=== PATIENT | female | born 1970 | race Caucasian/White ===

== ENCOUNTER → 2016-05-14 | Outpatient (CLI) | payer OTHER ==
--- NOTE | 2016-05-14 13:25 | MA ---
Diagnostic Digital Mammogram With iCAD Analysis Clinical Indications: Evaluate palpable area in the anterior right breast. Her mother was diagnosed w ith breast cancer in her 50s and her paternal grandmother was also diagnosed with breast cancer. Technique: Standard cephalocaudal projections are obtained. Digital breast tomosynthesis was performe d in the MLO projection with reconstruction at 1.0 mm slice thickness and composite MLO views reconst ructed. A skin marker is placed on the palpable area in the mid outer right breast. True lateral view of the right breast is also performed. This examination is processed by the [employer] computer-aided dete ction system. Comparison: October 2014, October 2012, April 2011. Breast Density: Type C: Heterogeneously dense. Findings: CAD was reviewed. Heterogeneous glandular pattern is noted with no distinct mammographic co rrelate for the palpable abnormality. No masses, suspicious calcifications, or secondary signs of mal ignancy are seen. There has been no significant change in the appearance of either breast. Impression: Palpable area in the right breast requires further evaluation, BI-RADS 0. Recommendation: Targeted right breast ultrasound which will be subsequently performed today. [facility] will send a result letter to the patient.
--- NOTE | 2016-05-14 13:34 | US ---
Right Breast Ultrasound History: Evaluate palpable abnormality in the anterior right breast at the 9 o'clock position. Technique: Longitudinal and transverse images were obtained utilizing a 15 MHz transducer. Color Dop pler evaluation is employed for assessment of vascularity. Examination is interpreted in conjunction with diagnostic mammography performed earlier today. Findings: The palpable abnormality at the 9 o'clock position of the right breast is easily identified on physical examination. Sonographic interrogation demonstrates a solid nodule measuring 1.9 x 1.2 c m. Immediately adjacent to the larger nodule is a 3 x 4 mm solid nodule approximately 1 cm away from the larger nodule. Impression: The palpable nodule is solid and therefore suspicious, BI-RADS 4. Recommendation: Ultrasound-guided large-core biopsy. The adjacent smaller lesion could be biopsied at the same time as biopsy of the larger lesion.. Findings and biopsy recommendations were reviewed with the patient in detail. Additionally, her [facility] provider's office was contacted and they will fax a procedure request to our department. Our de partment will contact the patient to schedule the ultrasound-guided biopsy . [facility] will send a result letter to the patient.
== END ==
LOC: FIMAGING 11:39
PROVIDERS: ATTEND Nurse Practitioner Adult Health
DX: N63 Unspecified lump in breast (principal); Z80.3 Family history of malignant neoplasm of breast
CPT/HCPCS: G0204; G0279

== ENCOUNTER → 2016-05-21 | Outpatient (CLI) | payer OTHER ==
[~2016-05-21] MED LIST: THROMBIN (RECOMBINANT) 5,000 UNIT VIAL TP ONE
--- NOTE | 2016-05-21 09:47 | MA ---
Diagnostic Digital Mammogram Right Breast Reason for examination: Follow up sonographically guided right breast biopsy. Technique: Craniocaudal and true lateral views were obtained. Findings: The Suros marker is deployed at the biopsy site in the anterior breast at the 9 o'clock pos ition. Impression: The Suros marker is deployed at the biopsy site. We will await pathologic results.
--- NOTE | 2016-05-21 16:49 | US ---
Vacuum-Assisted Ultrasound-Guided Core Biopsy of the Right Breast Reason for examination: Evaluate suspicious solid nodule in the right breast at the 9 o'clock positio n 1 cm from the nipple.. Crosscutting Measure #226: Current tobacco user: No. Technique: Informed consent was obtained. On prebiopsy sonographic evaluation the smaller lesion seen approximately 1 cm from the larger lesion is demonstrated on color Doppler to be extremely vascular and therefore not considered a good candidate for percutaneous biopsy. This may actually be a vascula r structure. Following sterile preparation and local anesthesia and utilizing vacuum assistance and s onographic guidance, a 9-gauge Suros needle was advanced into the larger lesion. Multiple large core biopsies were obtained. The biopsy was performed with continuous real time sonographic monitoring. A Suros marker was deployed to daylin the biopsy site. The needle was removed and hemostasis was obtained with manual compression. The patient tolerated the procedure well and no immediate complications occ urred. A post biopsy mammogram will be obtained to evaluate marker deployment. Discharge instruction s were given by the Radiology nurse. Impression: Successful sonographically guided large core biopsy. Follow up will depend to a certain e xtent on pathology results. Material was sent to pathology. We will await results.
[2016-05-31 14:43] LABS: ACCESSION # HR17-6366 (()); INTERPRETATION See Comments (())
== END ==
LOC: FIMAGING 07:56
PROVIDERS: ATTEND Radiology Diagnostic Radiology
PROC: 0HBT3ZX Excision of Right Breast, Percutaneous Approach, Diagnostic (ICD-10-PCS; principal; 2016-05-21)
DX: C50.911 Malignant neoplasm of unspecified site of right female breast (principal)
CPT/HCPCS: G0206

== ENCOUNTER → 2016-06-15 | Outpatient (CLI) | payer OTHER ==
[~2016-06-15] MED LIST changes: +GADOBUTROL 10 ML VIAL IVP ONE; -THROMBIN (RECOMBINANT) 5,000 UNIT VIAL TP ONE
== END ==
LOC: FIMAGING 10:02
PROVIDERS: ATTEND Surgery
DX: C50.911 Malignant neoplasm of unspecified site of right female breast (principal); R59.9 Enlarged lymph nodes, unspecified
CPT/HCPCS: 0159T; A9585; C8908

== ENCOUNTER 2016-07-16 12:05 | Day surgery (SDC) | payer OTHER ==
[~2016-07-16 12:05] MED LIST changes: -GADOBUTROL 10 ML VIAL IVP ONE; +ceFAZolin 2 GM/DEXTROSE 100 ML IV ONE
[2016-07-16] MEDS ORDERED: LIDOCAINE 1% 2 ML INJ ONE (12:15)
[2016-07-16] MEDS ORDERED: CEFAZOLIN 2 GM/DEXTROSE/100 ML BAG IV ONE (12:22)
[2016-07-16] MEDS ORDERED: LR 1,000 ML IV ONE (12:44)
[2016-07-16] MEDS ORDERED: LIDOCAINE 1% 30 ML SDV ONE (12:56)
[2016-07-16] MEDS ORDERED: BUPIVACAINE 0.25% 30 ML SDV ONE (12:56)
[2016-07-16] MEDS ORDERED: SODIUM BICARBONATE 10 MEQ/10 ML SYR IVP ONE (12:56)
[2016-07-16] MEDS ORDERED: HEPARIN 10,000 UNIT/10 ML MDV ONE (12:57)
[2016-07-16] MEDS ORDERED: MIDAZOLAM 2 MG/2 ML VIAL ONE (13:55)
[2016-07-16] MEDS ORDERED: fentaNYL 100 MCG/2 ML INJ ONE (14:23)
[2016-07-16] MEDS ORDERED: PROPOFOL/EMULSION 500 MG/50 ML BOTTLE IV ONE (14:23)
[2016-07-16] MEDS ORDERED: ONDANSETRON 4 MG/2 ML VIAL ONE (14:24)
[2016-07-16] MEDS ORDERED: LIDOCAINE 2% 100 MG/5 ML SYR ONE (14:24)
[2016-07-16] MEDS ORDERED: DEXAMETHASONE 4 MG/ML VIAL ONE ×2 (14:24)
[2016-07-16] MEDS ORDERED: LIDOCAINE 2% JELLY 5 ML TUBE ONE (14:24)
[2016-07-16] MEDS ORDERED: PROPOFOL 200 MG/20 ML VIAL ONE (15:02)
--- NOTE | 2016-07-16 16:03 | GOP ---
[f rep st] OPERATIVE REPORT DATE OF OPERATION: 07/16/2016 SURGEON: Lenard Rojas MD, FACS ANESTHESIA: Monitored anesthesia care. ANESTHESIOLOGIST: Ashutosh Boone MD. PREOPERATIVE DIAGNOSIS: 1. Right breast carcinoma. 2. Need for venous access for neoadjuvant chemotherapy. POSTOPERATIVE DIAGNOSIS: 1. Right breast carcinoma. 2. Need for venous access for neoadjuvant chemotherapy. PROCEDURE PERFORMED: Placement of a left subclavian venous port. FINDINGS: Uncomplicated port placement, post procedural chest x-ray, pending. ESTIMATED BLOOD LOSS: 10 mL. DESCRIPTION OF PROCEDURE: After informed consent was obtained, the patient was brought to the operating room and placed under deep sedation. The left chest wall and neck were prepped and draped in usual fashion. Before proceeding, a time-out and identification of the patient was performed. 0.25% Marcaine was used to infiltrate all incision sites. The left subclavian vein was punctured on the first pass and a flexible J-wire was introduced and advanced without resistance. Position was confirmed by fluoroscopy. A reservoir insertion site was selected on the chest wall and this was infiltrated with 0.25% Marcaine, incised transversely and dissection carried out down to the fascia with cautery dissection. An 8-Botswanan catheter was tunneled from the reservoir site to the venipuncture site where a small frank had been made in the skin with a 15 scalpel blade. A dilator and peel-away catheter were passed over the wire. The wire and dilator were removed. The 8- [place] polyurethane catheter was passed through the split catheter which was removed leaving the venous port catheter intravenous. The catheter was aspirated with good venous return and flushed with dilute heparin solution (100 units/mL). The tip of the catheter was adjusted by withdrawal under fluoroscopy such that the tip of the catheter lay at the superior vena cava right atrial junction. The external portion of the catheter was cut to length and attached to a reservoir. This was secured to the chest wall with interrupted 3-0 Prolene sutures. The reservoir was accessed with a noncoring needle and again aspirated and flushed with dilute heparin solution followed by 2.5 cc of 1000 unit/cc heparin. The subcutaneous tissues were approximated with 3-0 Monocryl suture. The skin was closed with 4-0 Monocryl suture in a subcuticular fashion both for the reservoir site as well as the vena puncture site. Mastisol and Steri-Strips were applied. Sterile dressings were placed. The patient was returned to the recovery room in satisfactory condition. Needle , sponge, and instrument counts were correct. COMPLICATIONS: None. Copy requested to: Patient chart /[id number]/MODL MTDD
== END 2016-07-16 17:00 | disposition home or self-care (01) ==
LOC: FSGY 12:05 → EEVIPCON 13:15 → FSGY 17:00
PROVIDERS: ATTEND Surgery
PROC: 02HV33Z Insertion of Infusion Device into Superior Vena Cava, Percutaneous Approach (ICD-10-PCS; principal; 2016-07-16 13:15)
PROC: 0JH60XZ Insertion of Tunneled Vascular Access Device into Chest Subcutaneous Tissue and Fascia, Open Approach (ICD-10-PCS; principal; 2016-07-16 13:15)
DX: C50.411 Malignant neoplasm of upper-outer quadrant of right female breast (principal)
CPT/HCPCS: C1788; J0690; J1100; J1644; J2001; J2250; J2405; J2704; J3010

== ENCOUNTER → 2016-09-10 | Outpatient (CLI) | payer OTHER | LOC: FIMAGING 12:13 | PROVIDERS: ATTEND Nurse Practitioner | DX: Z08 Encounter for follow-up examination after completed treatment for malignant neoplasm (principal); Z85.3 Personal history of malignant neoplasm of breast ==

== ENCOUNTER → 2016-11-25 | Outpatient (CLI) | payer OTHER ==
--- NOTE | 2016-11-25 11:46 | CPEKG ---
Heart Rate: 59 RR Interval: 1017 P-R Interval: 144 QRSD Interval: 76 QT Interval: 412 QTC Interval: 409 P Hitchcock: 76 QRS Hitchcock: 76 T Wave Hitchcock: 75 EKG Severity - ABNORMAL ECG - EKG Impression: SINUS RHYTHM EKG Impression: NONSPECIFIC T ABNORMALITIES, ANT-LAT LEADS Electronically Signed By: Alejandro Rothman 26-Nov-2016 07:24:03
== END ==
LOC: FCP 11:29
DX: Z01.818 Encounter for other preprocedural examination (principal); C50.919 Malignant neoplasm of unspecified site of unspecified female breast

== ENCOUNTER → 2017-02-10 | Outpatient (CLI) | payer OTHER | LOC: CIMAGING 08:09 | PROVIDERS: ATTEND Internal Medicine | DX: M79.601 Pain in right arm (principal) | CPT/HCPCS: 93971-PO ==

== ENCOUNTER 2017-04-30 22:15 | Emergency (ER) | payer OTHER ==
[2017-04-30] MEDS ORDERED: chlordiazePOXIDE 25 MG CAP PO ONE (22:42)
[2017-04-30] MEDS ORDERED: NS 1,000 ML IV ONE ×2 (22:42→23:23)
[2017-04-30 22:59] LABS: PLATELET COUNT 184 10^3/uL (150-400)
[2017-04-30] MEDS ORDERED: LORazepam 2 MG/ML INJ IVP ONE (23:01)
--- NOTE | 2017-04-30 23:30 | EDPHY ---
H & P Stated Complaint: dehydration HPI/ROS: Chief complaint: Dehydration, alcohol abuse History of present illness: This is a 46-year-old female who presents to the emergency department reporting she feels dehydrated. She has a history of alcohol abuse. Her last drink was a few hours ago. She is currently seeking inpatient treatment for her alcoholism. She states she went to an inpatient treatment center [facility] for evaluation. They asked her to go to the emergency room for rehydration. She denies other associated signs or symptoms at this time. Review of systems: A 10 point review of systems was obtained and other than described above was negative - Personal History LMP (Females 10-55): Unknown Current Tetanus Diphtheria and Acellular Pertussis (TDAP): Yes - Medical/Surgical History Hx Asthma: No Hx Chronic Respiratory Disease: No Hx Diabetes: No Hx Cardiac Disease: No Hx Renal Disease: No Hx Cirrhosis: No Hx Alcoholism: No Hx HIV/AIDS: No Hx Splenectomy or Spleen Trauma: No Other PMH: pmh:"BAD LIVER", DEPRESSION, breast CA 2016. PSH:NONE - Social History Smoking Status: Never smoked - Physical Exam Exam: General Appearance: Alert, nontoxic. Eyes: Pupils equal and round no pallor or injection. ENT, Mouth: Mucous membranes moist. Respiratory: There are no retractions, lungs are clear to auscultation. Cardiovascular: Regular rate and rhythm. Gastrointestinal: Abdomen is soft and non tender, no masses, bowel sounds normal. Neurological: Alert and oriented x4. Strength and sensation intact and symmetrical. Skin: Warm and dry, no rashes. Musculoskeletal: Neck is supple non tender. Extremities are symmetrical, full range of motion. Psychiatric: Patient is oriented X 3, there is no agitation. Constitutional: Initial Vital Signs Temperature (C) 37 C 04/30/17 22:19 Heart Rate 102 H 04/30/17 22:19 Respiratory Rate 20 04/30/17 22:19 Blood Pressure 145/116 H 04/30/17 22:19 O2 Sat (%) 94 04/30/17 22:19 O2 Delivery Mode Room Air Allergies/Adverse Reactions: No Known Allergies Allergy (Verified 04/30/17 22:18) Home Medications: Medication Instructions Recorded buPROPion SR [Wellbutrin 100mg SR 04/15/15 (*)] Gabapentin 800 mg 07/14/16 Medical Decision Making ED Course/Re-evaluation: Patient discussed with my secondary supervising physician Dr. Lenard Olivia. Patient presents to the emergency department reporting a history of alcohol abuse, states she is dehydrated and needs to be rehydrated so she can seek inpatient treatment for her alcoholism. She does appear to be in mild withdrawal on presentation. Baseline blood studies are obtained, noteworthy for leukopenia and mild transaminitis. She has had this problem previously. She is IV hydrated and treated with oral Librium and IV Ativan. On re- evaluation she is feeling much better. She would like to be discharged. She is going to stay at a hotel this evening and seek inpatient treatment tomorrow. She was offered to be sent to the [facility], she declined. Home care is discussed. Return precautions are given. The patient voiced understanding and agreement with plan. Differential Diagnosis: Included but not limited to alcohol intoxication, polysubstance abuse, alcohol withdrawal - Data Points Laboratory Results: Laboratory Results 04/30/17 22:49 04/30/17 22:49 04/30/17 04/30/17 04/30/17 22:49 22:49 22:49 WBC 2.06 10^3/uL L 10^3/uL (3.80-9.50) RBC 4.22 10^6/uL 10^6/uL (4.18-5.33) Hgb 14.1 g/dL g/dL (12.6-16.3) Hct 38.8 % % (38.0-47.0) MCV 91.9 fL fL (81.5-99.8) MCH 33.4 pg pg (27.9-34.1) MCHC 36.3 g/dL g/dL (32.4-36.7) RDW 14.8 % % (11.5-15.2) Plt Count 184 10^3/uL 10^3/uL (150-400) MPV 8.4 fL L fL (8.7-11.7) Neut % (Auto) 51.9 % % (39.3-74.2) Lymph % (Auto) 29.1 % % (15.0-45.0) Page % (Auto) 13.6 % H % (4.5-13.0) Eos % (Auto) 3.4 % % (0.6-7.6) Baso % (Auto) 1.5 % % (0.3-1.7) Nucleat RBC Rel Count 0.0 % % (0.0-0.2) Absolute Neuts (auto) 1.07 10^3/uL L 10^3/uL (1.70-6.50) Absolute Lymphs (auto) 0.60 10^3/uL L 10^3/uL (1.00-3.00) Absolute Monos (auto) 0.28 10^3/uL L 10^3/uL (0.30-0.80) Absolute Eos (auto) 0.07 10^3/uL 10^3/uL (0.03-0.40) Absolute Basos (auto) 0.03 10^3/uL 10^3/uL (0.02-0.10) Absolute Nucleated RBC 0.00 10^3/uL 10^3/uL (0-0.01) Immature Gran % 0.5 % % (0.0-1.1) Immature Gran # 0.01 10^3/uL 10^3/uL (0.00-0.10) Sodium 139 mEq/L mEq/L (135-145) Potassium 4.5 mEq/L mEq/L (3.5-5.2) Chloride 97 mEq/L mEq/L (97-110) Carbon Dioxide 22 mEq/l mEq/l (22-31) Anion Gap 20 mEq/L H mEq/L (8-16) BUN 9 mg/dL mg/dL (7-23) Creatinine 0.7 mg/dL mg/dL (0.6-1.0) Estimated GFR > 60 Glucose 102 mg/dL H mg/dL (70-100) Calcium 9.6 mg/dL mg/dL (8.5-10.4) Total Bilirubin 0.6 mg/dL mg/dL (0.1-1.4) Conjugated Bilirubin 0.3 mg/dL mg/dL (0.0-0.5) Unconjugated Bilirubin 0.3 mg/dL mg/dL (0.0-1.1) AST 291 IU/L H IU/L (14-46) ALT 203 IU/L H IU/L (9-52) Alkaline Phosphatase 119 IU/L IU/L (38-126) Total Protein 8.3 g/dL H g/dL (6.3-8.2) Albumin 4.9 g/dL g/dL (3.5-5.0) Beta HCG, Qual NEGATIVE Medications Given: Discontinued Medications Chlordiazepoxide HCl (Librium) 25 mg PO EDNOW ONE Stop: 04/30/17 22:43 Last Admin: 04/30/17 22:51 Dose: 25 mg Chlordiazepoxide HCl (Librium) 25 mg PO EDNOW ONE Stop: 05/01/17 00:24 Last Admin: 05/01/17 00:30 Dose: 25 mg Sodium Chloride (Ns) 1,000 mls @ 0 mls/hr IV EDNOW ONE; Wide Open PRN Reason: Protocol Stop: 04/30/17 22:43 Last Admin: 04/30/17 22:51 Dose: 1,000 mls Sodium Chloride (Ns) 1,000 mls @ 0 mls/hr IV ONCE ONE PRN Reason: Wide Open Stop: 04/30/17 23:24 Last Admin: 04/30/17 23:52 Dose: 1,000 mls Lorazepam (Ativan Injection) 2 mg IVP EDNOW ONE Stop: 04/30/17 23:02 Last Admin: 04/30/17 23:04 Dose: 2 mg Departure - Departure Disposition: Home, Routine, Self-Care Clinical Impression: Dehydration, Alcohol abuse, Transaminitis Leukopenia Qualifiers: Leukopenia type: unspecified Qualified Code(s): D72.819 - Decreased white blood cell count, unspecified Condition: Good Instructions: Dehydration (ED), Abuse of Alcohol (ED) Additional Instructions: Follow-up with your primary care doctor this week for recheck of your laboratory findings Drink plenty of fluids to stay hydrated If symptoms worsen or new symptoms develop return to the emergency room for recheck Referrals: Ada Olea MD [Primary Care Provider] - As per Instructions
[2017-04-30 23:54] VITALS: PULSE 90
[2017-05-01 00:17] VITALS: BP 117/85; RESP 16; O2SAT 96
[2017-05-01] MEDS ORDERED: chlordiazePOXIDE 25 MG CAP PO ONE (00:23)
[2017-05-01 00:40] VITALS: TEMP 97.3
== END 2017-05-01 00:38 | disposition home or self-care (01) ==
DX: E86.0 Dehydration (principal); F10.10 Alcohol abuse, uncomplicated; R74.0 Nonspecific elevation of levels of transaminase and lactic acid dehydrogenase [LDH]; D72.819 Decreased white blood cell count, unspecified; E86.9 Volume depletion, unspecified; Z85.3 Personal history of malignant neoplasm of breast
CPT/HCPCS: 96374; J2060

== ENCOUNTER 2017-09-20 16:26 | Emergency (ER) | payer OTHER ==
[2017-09-20] MEDS ORDERED: LORazepam 2 MG/ML INJ IVP ONE (16:31)
[2017-09-20] MEDS ORDERED: NS 1,000 ML IV ONE (16:31)
--- NOTE | 2017-09-20 16:34 | EDPHY ---
H & P Time Seen by Provider: 09/20/17 16:35 HPI/ROS: CHIEF COMPLAINT: Seizure HISTORY OF PRESENT ILLNESS: The patient is a 47-year-old alcoholic female who is trying to stop drinking. She has not had a drink for 24 hr. She was with her today at the grocery store when she had a generalized tonic-clonic seizure lasting 90 sec. She was postictal when EMS arrived. She did hit her head on the ground and has a hematoma to the back of her head and a mild headache. She vomited once. She was incontinent and did not bite her tongue. She also takes gabapentin and Wellbutrin for history of anxiety and depression. She states that she has not missed any doses of these are taken extra. Also has a history of breast cancer in her bowel disease. Was given Zofran by EMS and IV fluids. REVIEW OF SYSTEMS: Constitutional: denies: chills, fever, recent illness, recent injury EENTM: denies: blurred vision, double vision, nose congestion Respiratory: denies: cough, shortness of breath Cardiac: denies: chest pain, irregular heart rate, lightheadedness, palpitations Gastrointestinal/Abdominal: denies: abdominal pain, diarrhea, nausea, vomiting, blood streaked stools Genitourinary: denies: dysuria, frequency, hematuria, pain Musculoskeletal: denies: joint pain, muscle pain Skin: denies: lesions, rash, jaundice, bruising Neurological: See HPI See HPI denies: numbness, paresthesia, tingling, dizziness, weakness Hematologic/Lymphatic: denies: blood clots, easy bleeding, easy bruising Immunologic/allergic: denies: HIV/AIDS, transplant EXAM: GENERAL: Well-appearing, well-nourished and in no acute distress. HEAD: Atraumatic, normocephalic. EYES: Pupils equal round and reactive to light, extraocular movements intact, sclera anicteric, conjunctiva are normal. ENT: TMs normal, nares patent, oropharynx clear without exudates. Moist mucous membranes. NECK: Normal range of motion, supple without lymphadenopathy or JVD. LUNGS: Breath sounds clear to auscultation bilaterally and equal. No wheezes rales or rhonchi. HEART: Regular rate and rhythm without murmurs, rubs or gallops. ABDOMEN: Soft, nontender, normoactive bowel sounds. No guarding, no rebound. No masses appreciated. BACK: No CVA tenderness, no spinal tenderness, step-offs or deformities EXTREMITIES: Normal range of motion, no pitting or edema. No clubbing or cyanosis. NEUROLOGICAL: Slightly confused, mild tremor, Cranial nerves II through XII grossly intact. Normal speech, normal gait. 5/5 strength, normal movement in all extremities, normal sensation PSYCH: Normal mood, normal affect. SKIN: Warm, dry, normal turgor, no visible rashes or lesions. Source: Patient Exam Limitations: No limitations - Medical/Surgical History Hx Asthma: No Hx Chronic Respiratory Disease: No Hx Diabetes: No Hx Cardiac Disease: No Hx Renal Disease: No Hx Cirrhosis: No Hx Alcoholism: No Hx HIV/AIDS: No Hx Splenectomy or Spleen Trauma: No Other PMH: pmh:"BAD LIVER", DEPRESSION, breast CA 2016. PSH:NONE - Social History Smoking Status: Never smoked Alcohol Use: Heavy Constitutional: Initial Vital Signs Temperature (C) 36.7 C 09/20/17 16:37 Heart Rate 80 09/20/17 16:37 Respiratory Rate 14 09/20/17 16:37 Blood Pressure 138/100 H 09/20/17 16:37 O2 Sat (%) 96 09/20/17 16:37 O2 Delivery Mode Room Air Allergies/Adverse Reactions: No Known Allergies Allergy (Verified 04/30/17 22:18) Home Medications: Medication Instructions Recorded buPROPion SR [Wellbutrin 100mg SR 04/15/15 (*)] Gabapentin 800 mg 07/14/16 Medical Decision Making - Diagnostics Imaging Results: Imaging Impressions Head CT 09/20/17 16:31 Impression: 1. Mild cerebral atrophy. 2. Left parietal scalp hematoma measuring 5 x 2 cm without skull fracture. 3. No epidural or subdural hematoma. Findings and recommendations discussed with Emergency Department physician, RYANN CHADWICK at 17:24 hour, 09/20/2017. Final report concurs with initial preliminary interpretation. Imaging: Discussed imaging studies w/ order desk caller Radiologist ED Course/Re-evaluation: We discussed the CT and lab results. The patient is feeling much better. I will give her Librium to take home with her . She does not wish to go to the recovery Center. She states that she has been through this before and has much support at home. Differential Diagnosis: Partial list of the Differential diagnosis considered include but were not limited to; hematoma, alcohol withdrawal, seizure and although unlikely based on the history and physical exam, I also considered fracture, intracranial hemorrhage. I discussed these differential diagnoses and the plan with the patient as well as the usual and expected course. The patient understands that the diagnosis is provisional and that in medicine we are not always correct and that further workup is often warranted. Usual and customary warnings were given. All of the patient's questions were answered. The patient was instructed to return to the emergency department should the symptoms at all worsen or return, otherwise to followup with the physician as we discussed. - Data Points Laboratory Results: Laboratory Results 09/20/17 16:57 09/20/17 16:57 09/20/17 09/20/17 09/20/17 16:57 16:57 16:57 WBC RBC Hgb Hct MCV MCH MCHC RDW Plt Count MPV Neut % (Auto) Lymph % (Auto) [place] % (Auto) Eos % (Auto) Baso % (Auto) Nucleat RBC Rel Count Absolute Neuts (auto) Absolute Lymphs (auto) Absolute Monos (auto) Absolute Eos (auto) Absolute Basos (auto) Absolute Nucleated RBC Immature Gran % Immature Gran # PT 14.3 SEC SEC (12.0-15.0) INR 1.09 (0.83-1.16) Sodium 131 mEq/L L mEq/L (135-145) Potassium 3.3 mEq/L mEq/L (3.3-5.0) Chloride 90 mEq/L L mEq/L (97-110) Carbon Dioxide 15 mEq/l L mEq/l (22-31) Anion Gap 26 mEq/L H mEq/L (8-16) BUN 7 mg/dL mg/dL (7-23) Creatinine 0.8 mg/dL mg/dL (0.6-1.0) Estimated GFR > 60 Glucose 129 mg/dL H mg/dL (70-100) Calcium 9.7 mg/dL mg/dL (8.5-10.4) Beta HCG, Qual NEGATIVE 09/20/17 16:57 WBC 3.92 10^3/uL 10^3/uL (3.80-9.50) RBC 3.82 10^6/uL L 10^6/uL (4.18-5.33) Hgb 12.7 g/dL g/dL (12.6-16.3) Hct 37.2 % L % (38.0-47.0) MCV 97.4 fL fL (81.5-99.8) MCH 33.2 pg pg (27.9-34.1) MCHC 34.1 g/dL g/dL (32.4-36.7) RDW 12.6 % % (11.5-15.2) Plt Count 131 10^3/uL L 10^3/uL (150-400) MPV 10.2 fL fL (8.7-11.7) Neut % (Auto) 59.4 % % (39.3-74.2) Lymph % (Auto) 26.3 % % (15.0-45.0) [place] % (Auto) 12.0 % % (4.5-13.0) Eos % (Auto) 1.0 % % (0.6-7.6) Baso % (Auto) 0.8 % % (0.3-1.7) Nucleat RBC Rel Count 0.0 % % (0.0-0.2) Absolute Neuts (auto) 2.33 10^3/uL 10^3/uL (1.70-6.50) Absolute Lymphs (auto) 1.03 10^3/uL 10^3/uL (1.00-3.00) Absolute Monos (auto) 0.47 10^3/uL 10^3/uL (0.30-0.80) Absolute Eos (auto) 0.04 10^3/uL 10^3/uL (0.03-0.40) Absolute Basos (auto) 0.03 10^3/uL 10^3/uL (0.02-0.10) Absolute Nucleated RBC 0.00 10^3/uL 10^3/uL (0-0.01) Immature Gran % 0.5 % % (0.0-1.1) Immature Gran # 0.02 10^3/uL 10^3/uL (0.00-0.10) PT INR Sodium Potassium Chloride Carbon Dioxide Anion Gap BUN Creatinine Estimated GFR Glucose Calcium Beta HCG, Qual Medications Given: Discontinued Medications Chlordiazepoxide (Librium 25 Mg Prepack#6) 1 btl TAKEHOME EDNOW ONE Stop: 09/20/17 18:41 Last Admin: 09/20/17 18:59 Dose: 1 btl Sodium Chloride (Ns) 1,000 mls @ 0 mls/hr IV ONCE ONE; Wide Open PRN Reason: Protocol Stop: 09/20/17 16:32 Last Admin: 09/20/17 16:46 Dose: 1,000 mls Lorazepam (Ativan Injection) 1 mg IVP EDNOW ONE Stop: 09/20/17 16:32 Last Admin: 09/20/17 16:46 Dose: 1 mg Departure - Departure Disposition: Home, Routine, Self-Care Clinical Impression: Hematoma Alcohol withdrawal Qualifiers: Complication of substance-induced condition: with unspecified complication Qualified Code(s): F10.239 - Alcohol dependence with withdrawal, unspecified Condition: Fair Instructions: Chlordiazepoxide (By mouth), Alcohol Withdrawal (ED) Referrals: Patient,NotPresent [Primary Care Provider] - As per Instructions Elvie Brown MD [Medical Doctor] - As per Instructions
[2017-09-20 17:22] LABS: PLATELET COUNT 131 10^3/uL (150-400)
[2017-09-20 17:36] LABS: INR 1.09 (0.83-1.16); PROTIME(PATIENT) 14.3 SEC (12.0-15.0)
[2017-09-20] MEDS ORDERED: CHLORDIAZEPOXIDE 25MG PREPK#6 BTL TAKEHOME ONE (18:40)
[2017-09-20 19:03] VITALS: BP 117/88
== END 2017-09-20 19:11 | disposition home or self-care (01) ==
LOC: EDUNIT#
DX: S00.03XA Contusion of scalp, initial encounter (principal); F10.239 Alcohol dependence with withdrawal, unspecified; E86.9 Volume depletion, unspecified; Z85.3 Personal history of malignant neoplasm of breast; W01.198A Fall on same level from slipping, tripping and stumbling with subsequent striking against other object, initial encounter; Y99.8 Other external cause status
CPT/HCPCS: 96374; J2060

== ENCOUNTER 2018-02-18 17:04 | Emergency (ER) | payer OTHER ==
[2018-02-18 17:31] LABS: PLATELET COUNT 329 10^3/uL (150-400)
[2018-02-18] MEDS ORDERED: ONDANSETRON 4 MG/2 ML VIAL IVP ONE (17:58)
[2018-02-18] MEDS ORDERED: LORazepam 2 MG/ML INJ ONE (18:02)
[2018-02-18] MEDS ORDERED: LORazepam 2 MG/ML INJ IVP ONE (18:04)
--- NOTE | 2018-02-18 18:04 | EDPHY ---
H & P Time Seen by Provider: 02/18/18 17:58 HPI/ROS: CHIEF COMPLAINT: Seizure HISTORY OF PRESENT ILLNESS: Patient was found face down at home in her mini taco plate and Macario sauce, seizure activity according to . She is pretty sure she had alcohol withdrawal seizure. The patient has history of alcoholism and had a seizure in September at [employer] and had an negative head CT for trauma at that time. Her last drink was yesterday with several beers. She recently was discharged from [facility] in an attempt to achieve sobriety. All day today patient remembers having nausea and vomiting. Still has nausea but no abdominal pain. Denies headache or neck pain. Brought in by EMS. REVIEW OF SYSTEMS: Eye: no change in vision ENT: no sore throat Cardiac: Denies chest pain Pulmonary: no cough or SOB Abdomen: No abdominal pain or diarrhea Musculoskeletal: no back pain Skin: no rash Neuro: Mild headache but no head trauma. Constitutional: no fever : no urinary symptoms A comprehensive 10 point review of systems is otherwise negative aside from elements mentioned in the history of present illness. PAST MEDICAL HISTORY: Includes alcoholism, depression, breast cancer in 2017 Social history: Last alcohol yesterday General Appearance: Alert and conversant, cooperative. Eyes: No scleral icterus. ENT, Mouth: Slight right-sided tongue abrasion. Respiratory: Normal respiratory effort, breath sounds equal, lungs are clear to auscultation. Cardiovascular: Regular rate and rhythm. Gastrointestinal: Abdomen is soft and non tender. Neurological: Alert, face symmetric, normal motor and sensory in extremities. Mildly tremulous. Fluent speech. Amnestic to earlier today. Remembers the ambulance ride. Skin: Warm and dry, no rashes. Musculoskeletal: No peripheral edema. No spinal tenderness. Psychiatric: Not agitated. Emergency Department course/MDM: CO2 20 and alcohol less than 10, tongue abrasion. All this and 's account support diagnosis of probable seizure. Patient is tremulous and was given 2 mg IV Ativan. Head imaging in September, would not repeat. Warned no driving until cleared by primary care provider. 1924: Patient is feeling better with no nausea, not tremulous. CIWA score essentially 0. Plan to observe for another 60-90 minutes and discharge if still stable. 2100: Stable for discharge, does not appear to require additional benzodiazepines. Smoking Status: Never smoked Constitutional: Initial Vital Signs Temperature (C) 36.9 C 02/18/18 17:04 Heart Rate 80 02/18/18 17:04 Respiratory Rate 16 02/18/18 17:04 Blood Pressure 139/106 H 02/18/18 17:04 O2 Sat (%) 95 02/18/18 17:04 O2 Delivery Mode Room Air Allergies/Adverse Reactions: No Known Allergies Allergy (Verified 04/30/17 22:18) Home Medications: Medication Instructions Recorded buPROPion SR [Wellbutrin 100mg SR 04/15/15 (*)] Gabapentin 800 mg 07/14/16 Melatonin 02/18/18 traZODone 02/18/18 Medical Decision Making Differential Diagnosis: Differential diagnosis considered for a seizure including but not limited to electrolyte abnormality, alcohol withdrawal, medication noncompliance, head injury, and breakthrough seizure. - Data Points Laboratory Results: Laboratory Results 02/18/18 17:05 02/18/18 17:05 02/18/18 02/18/18 02/18/18 17:05 17:05 17:05 WBC 3.07 10^3/uL L 10^3/uL (3.80-9.50) RBC 4.70 10^6/uL 10^6/uL (4.18-5.33) Hgb 14.9 g/dL g/dL (12.6-16.3) Hct 44.4 % % (38.0-47.0) MCV 94.5 fL fL (81.5-99.8) MCH 31.7 pg pg (27.9-34.1) MCHC 33.6 g/dL g/dL (32.4-36.7) RDW 15.0 % % (11.5-15.2) Plt Count 329 10^3/uL 10^3/uL (150-400) MPV 8.5 fL L fL (8.7-11.7) Neut % (Auto) 44.9 % % (39.3-74.2) Lymph % (Auto) 41.7 % % (15.0-45.0) [place] % (Auto) 7.5 % % (4.5-13.0) Eos % (Auto) 4.9 % % (0.6-7.6) Baso % (Auto) 1.0 % % (0.3-1.7) Nucleat RBC Rel Count 0.0 % % (0.0-0.2) Absolute Neuts (auto) 1.38 10^3/uL L 10^3/uL (1.70-6.50) Absolute Lymphs (auto) 1.28 10^3/uL 10^3/uL (1.00-3.00) Absolute Monos (auto) 0.23 10^3/uL L 10^3/uL (0.30-0.80) Absolute Eos (auto) 0.15 10^3/uL 10^3/uL (0.03-0.40) Absolute Basos (auto) 0.03 10^3/uL 10^3/uL (0.02-0.10) Absolute Nucleated RBC 0.00 10^3/uL 10^3/uL (0-0.01) Immature Gran % 0.0 % % (0.0-1.1) Immature Gran # 0.00 10^3/uL 10^3/uL (0.00-0.10) Sodium 133 mEq/L L mEq/L (135-145) Potassium 4.0 mEq/L mEq/L (3.3-5.0) Chloride 92 mEq/L L mEq/L (97-110) Carbon Dioxide 20 mEq/l L mEq/l (22-31) Anion Gap 21 mEq/L H mEq/L (6-14) BUN 6 mg/dL L mg/dL (7-23) Creatinine 0.7 mg/dL mg/dL (0.6-1.0) Estimated GFR > 60 Glucose 153 mg/dL H mg/dL (70-100) Calcium 10.2 mg/dL mg/dL (8.5-10.4) Ethyl Alcohol < 10 mg/dL mg/dL (0-10) Medications Given: Discontinued Medications Lorazepam (Ativan Injection) 2 mg IVP EDNOW ONE Stop: 02/18/18 18:05 Last Admin: 02/18/18 18:06 Dose: 2 mg Ondansetron HCl (Zofran) 4 mg IVP EDNOW ONE Stop: 02/18/18 17:59 Last Admin: 02/18/18 18:06 Dose: 4 mg Ondansetron HCl (Zofran Odt 4 Mg Prepack#2) 1 btl TAKEHOME EDNOW ONE Stop: 02/18/18 21:18 Last Admin: 02/18/18 21:23 Dose: 1 btl Departure - Departure Disposition: Home, Routine, Self-Care Clinical Impression: Alcohol withdrawal seizure Qualifiers: Complication of substance-induced condition: with unspecified complication Qualified Code(s): F10.239 - Alcohol dependence with withdrawal, unspecified Condition: Good Instructions: Ondansetron (By mouth), Alcohol Withdrawal (ED) Additional Instructions: No driving until cleared to do so by her primary care doctor. Referrals: Ada Olea MD [Primary Care Provider] - As per Instructions
[2018-02-18] MEDS ORDERED: ONDANSETRON 4MG PREPACK#2 BTL TAKEHOME ONE (21:17)
[2018-02-18 21:23] VITALS: BP 116/88
== END 2018-02-18 21:23 | disposition home or self-care (01) ==
LOC: EDUNIT# → EDBD
DX: F10.239 Alcohol dependence with withdrawal, unspecified (principal); G40.89 Other seizures
CPT/HCPCS: 96374; G0480; J2060; J2405

== ENCOUNTER → 2018-02-22 | Outpatient (CLI) | payer OTHER ==
[~2018-02-22] MED LIST changes: +GADOBUTROL 10 ML VIAL IVP ONE; -ceFAZolin 2 GM/DEXTROSE 100 ML IV ONE
== END ==
LOC: FIMAGING 14:43
PROVIDERS: ATTEND Internal Medicine Hematology & Oncology
DX: C50.411 Malignant neoplasm of upper-outer quadrant of right female breast (principal); Z80.3 Family history of malignant neoplasm of breast; Z85.3 Personal history of malignant neoplasm of breast
CPT/HCPCS: 0159T; 77059; A9585; C8908

== ENCOUNTER → 2018-02-22 | Outpatient (CLI) | payer OTHER | LOC: BMCIMAGING 11:14 | PROVIDERS: ATTEND Internal Medicine Hematology & Oncology | DX: Z13.820 Encounter for screening for osteoporosis (principal); Z85.3 Personal history of malignant neoplasm of breast; Z78.0 Asymptomatic menopausal state; M81.0 Age-related osteoporosis without current pathological fracture ==

== ENCOUNTER 2018-06-25 20:59 | Emergency (ER) | payer OTHER ==
[2018-06-25] MEDS ORDERED: LORazepam 2 MG/ML INJ ONE (21:32)
[2018-06-25] MEDS: LORazepam 2 MG/ML INJ IVP PRN ×2 (21:35→22:35)
[2018-06-25] MEDS ORDERED: LORazepam 1 MG TAB PO PRN (21:42)
[2018-06-25] MEDS ORDERED: NS 1,000 ML IV ONE ×2 (21:46→22:49)
[2018-06-25 21:56] LABS: PLATELET COUNT 200 10^3/uL (150-400)
--- NOTE | 2018-06-25 23:11 | EDPHY ---
H & P Time Seen by Provider: 06/25/18 21:23 HPI/ROS: CHIEF COMPLAINT: Alcohol withdrawal HISTORY OF PRESENT ILLNESS: This is a 48-year-old female presents emergency department reporting that she is a serious and significant alcoholic. She was discharged from a 30 day inpatient detox program early May and reports that she has been drinking heavily since that time. Patient stopped drinking yesterday, reports that her last drink was last night at 9:00 p.m.. She had vomiting yesterday while she was drinking. No vomiting today. Since that time she has been tremors, very anxious, nauseous but no vomiting. Does have a history of alcohol withdrawal seizures. No fever, chills, chest pain, shortness of breath, vomiting, diarrhea, urinary complaints. REVIEW OF SYSTEMS: A comprehensive 10 system review of systems was reviewed and is otherwise negative aside from elements mentioned in the history of present illness and medical decision making. PAST MEDICAL HISTORY: Alcohol abuse. No known hepatic issues. SOCIAL HISTORY: Significant alcohol intake, nonsmoker. VITAL SIGNS Reviewed by me. 108 heart rate, blood pressure 152/116 GENERAL: Well-developed, well-nourished, visibly tremorous. Quite anxious. Worried that she will have a seizure. HEENT: Atraumatic. Eyes: No icterus, no injection. Mouth: moist mucous membranes. No erythema or lesions. Tremor of the tongue. Neck: supple with no adenopathy. LUNGS: Clear to auscultation bilaterally, no wheezes, rhonchi or rales. CARDIAC: Tachycardic, no rubs murmurs or gallops. ABDOMEN: Soft, nontender, nondistended, bowel sounds normal. BACK: No CVA tenderness. EXTREMITIES: No trauma. No edema. Range of motion is normal throughout. Tremors. NEURO: Alert and oriented, grossly nonfocal. SKIN: Warm and dry, no rash. PSYCHIATRIC: Normal mentation, no agitation. Smoking Status: Never smoked Constitutional: Initial Vital Signs Temperature (C) 36.7 C 06/25/18 21:04 Heart Rate 108 H 06/25/18 21:04 Respiratory Rate 20 06/25/18 21:04 Blood Pressure 152/116 H 06/25/18 21:04 O2 Sat (%) 97 06/25/18 21:04 O2 Delivery Mode Room Air Allergies/Adverse Reactions: No Known Allergies Allergy (Verified 01/13/18 22:18) Home Medications: Medication Instructions Recorded buPROPion SR [Wellbutrin 100mg SR 04/15/15 (*)] Gabapentin 800 mg 07/14/16 Melatonin 02/18/18 traZODone 02/18/18 Medical Decision Making ED Course/Re-evaluation: Patient IV placed. Initial CIWA score was 12. She received 2 mg of Ativan IV. On re-examination, patient reports somewhat improved tremor but still remains quite anxious. Repeat score is 6. She received an additional 2 mg of Ativan. Additional L of IV fluids was ordered. Patient re-examined at midnight. Heart rate is 100. Tremor has much improved. We discussed options. She is very interested in seeking inpatient treatment long-term at [facility] or [facility]. At the current time, however, the patient was agreeable to be discharged to the [facility] on Librium protocol. Differential Diagnosis: Differential diagnoses for the patient's symptom complex was considered including but not limited to alcohol withdrawal, alcoholic ketoacidosis, nausea vomiting, dehydration, alcohol withdrawal seizure, acute alcohol intoxication. - Data Points Laboratory Results: Laboratory Results 06/25/18 21:20 06/25/18 21:20 Medications Given: Discontinued Medications Chlordiazepoxide (Librium 25 Mg Prepack#6) 1 btl TAKEHOME EDNOW ONE Stop: 06/26/18 00:06 Last Admin: 06/26/18 00:21 Dose: Not Given Chlordiazepoxide HCl (Librium) 25 mg PO EDNOW ONE Stop: 06/25/18 23:37 Last Admin: 06/25/18 23:49 Dose: 25 mg Sodium Chloride (Ns) 1,000 mls @ 0 mls/hr IV EDNOW ONE; Wide Open PRN Reason: Protocol Stop: 06/25/18 21:47 Last Admin: 06/25/18 21:46 Dose: 1,000 mls Sodium Chloride (Ns) 1,000 mls @ 0 mls/hr IV ONCE ONE; Wide Open PRN Reason: Protocol Stop: 06/25/18 22:50 Last Admin: 06/25/18 23:00 Dose: 1,000 mls Lorazepam (Ativan Injection) 0 mg IVP Q1H PRN; Protocol PRN Reason: Alcohol Withdrawal w/IV access Stop: 06/26/18 09:42 Last Admin: 06/25/18 22:35 Dose: 2 mg Departure - Departure Disposition: Home, Routine, Self-Care Clinical Impression: Alcohol dependence Qualifiers: Substance use status: uncomplicated Qualified Code(s): F10.20 - Alcohol dependence, uncomplicated Alcohol dependence with withdrawal Qualifiers: Complication of substance-induced condition: uncomplicated Qualified Code(s): F10.230 - Alcohol dependence with withdrawal, uncomplicated Condition: Good Instructions: Alcohol Withdrawal (ED) Additional Instructions: You been discharged to the [facility] Your alcohol withdrawal will be managed at the [facility] with oral Librium. Referrals: Ada Olea MD [Primary Care Provider] - As per Instructions
[2018-06-25] MEDS ORDERED: chlordiazePOXIDE 25 MG CAP PO ONE (23:36)
[2018-06-26] MEDS ORDERED: CHLORDIAZEPOXIDE 25MG PREPK#6 BTL TAKEHOME ONE ×2 (00:05→00:06)
[2018-06-26 00:14] VITALS: BP 129/89
== END 2018-06-26 00:25 | disposition home or self-care (01) ==
DX: F10.239 Alcohol dependence with withdrawal, unspecified (principal); E86.9 Volume depletion, unspecified
CPT/HCPCS: 96374; G0480; J2060